=== PATIENT | female | born 1995 | race Asian ===

== ENCOUNTER 2016-04-23 13:56 | Emergency (ER) | payer OTHER ==
[~2016-04-23] VITALS: Ht 172.7 cm; Wt 57.3 kg
[2016-04-23 14:00] VITALS: TEMP 36.5; Ht 172.7 cm; Wt 57.3 kg
[2016-04-23 15:05] LABS: URINE APPEARANCE CLEAR (CLEAR); URINE BILIRUBIN NEG (NEG); URINE COLOR YELLOW; URINE EPITHELIAL CELL AUTO >30 /lpf (0-5); URINE NITRITE NEG (NEG); URINE PH 5.5 (4.5-7.5); URINE SPECIFIC GRAVITY 1.023 (1.000-1.030); UROBILINOGEN NEG (NEG)
[2016-04-23 15:17] LABS: MANUAL MICROSCOPIC REQUIRED? NO; REVIEW REQ? YES; ZZUR CULT IF INDIC CLEAN CATCH YES
[2016-04-23 15:23] LABS: BASO % 0.3 %; BASO ABS # 0.03 K/uL (0-0.2); COMPLETE YES; EOS % 1.5 %; HEMATOCRIT 44.6 % (37-47); IG% 0.1 %; LYMPH % 39.7 %; LYMPH ABS # 3.66 K/uL (1.2-3.4); MEAN CELL VOLUME 91.6 fL (80-100); MEAN CORPUSCULAR HEMOGLOBIN 31.8 pg (25-34); MEAN CORPUSCULAR HGB CONC 34.8 g/dl (32-36); MEAN PLATELET VOLUME 9.7 fL (7.4-10.4); MONO % 9.2 %; NEUT % 49.2 %; PLATELET COUNT 261 K/uL (130-400); RED BLOOD COUNT 4.87 M/uL (4.2-5.4); WHITE BLOOD COUNT 9.23 K/uL (4.8-10.8)
[2016-04-23 15:48] LABS: ALT/SGPT 19 U/L (12-78); AST/SGOT 13 U/L (15-37); BLOOD UREA NITROGEN 15 mg/dl (7-18); BUN/CREATININE RATIO 19.1 (10-20); CALCIUM 9.6 mg/dl (8.5-10.1); CARBON DIOXIDE 26 mmol/L (21-32); CHLORIDE 103 mmol/L (98-107); CREATININE 0.79 mg/dl (0.60-1.20); GLUCOSE 84 mg/dl (70-99); POTASSIUM 3.6 mmol/L (3.5-5.1); SODIUM 139 mmol/L (136-145)
[2016-04-23 15:50] LABS: ALKALINE PHOSPHATASE 62 U/L (45-117)
[2016-04-23] MEDS ORDERED: CEFTRIAXONE SOD 350MG/ML 1 GM VIAL IM STA (16:35)
[2016-04-23] MEDS ORDERED: DOXY100C PO (16:41)
[2016-04-23] MEDS ORDERED: DOXYCYCLINE HYCLATE 100 MG CAP PO ONE (16:45)
[2016-04-23 17:25] VITALS: BP 103/59; PULSE 84; O2SAT 98
--- NOTE | 2016-04-23 17:54 | EMERGENCY ROOM VISIT NOTE ---
History Report prepared by Devangibe: Darcy Nieves Under the Supervision of: Zunilda HannahO. First contact with patient: 14:25 Chief Complaint: VAGINAL DISCHARGE Stated Complaint: ITCHY VAGINAL AREA, ITCHY WHEN URINATING History of Present Illness The patient is a 20 year old female who presents to the Emergency Room with complaints of persistent vaginal itchiness for the past 1 month. She is accompanied by her boyfriend. She denies any dysuria or hematuria. She admits to some yellow vaginal discharge 1 month ago, but states it has resolved. Her last menstrual period ended on March 31, 2016 and was normal. Her last bowel movement was this morning and normal. She is sexually active with her boyfriend , who denies any similar symptoms. The patient denies any history of previous STD's or vaginal infections. The patient also denies any headache, change in vision, fevers, cough or cold symptoms, chest pain, shortness of breath, abdominal pain, nausea, vomiting, diarrhea and melena. Source of History: patient Onset: 1 month [employer]ING [employer] Position: other (vagina) Timing: other (persistent) Associated Symptoms: No SOB, No abdominal pain, No chest pain, No cough ( cough or cold symptoms), No diarrhea, No fevers, No headache, No melena, No nausea, No urinary symptoms, No vomiting Review of Systems See HPI for pertinent positives & negatives. A total of 10 systems reviewed and were otherwise negative. Past Medical & Surgical Medical Problems: (1) No significant past medical history Social History Smoking Status: Current Every Day Smoker Alcohol Use: occasionally Drug Use: none Marital Status: in relationship Housing Status: lives with roommate Occupation Status: [employer] student Current/Historical Medications Scheduled Doxycycline Hyclate (Vibramycin), 100 MG PO BID Allergies Coded Allergies: No Known Allergies (Unverified , 04/23/16) Physical Exam Vital Signs Date Time Temp Pulse Resp B/P Pulse Ox O2 Delivery O2 Flow Rate FiO2 04/23/16 17:25 84 18 103/59 98 04/23/16 16:37 86 18 107/65 99 Room Air 04/23/16 14:00 36.5 102 18 124/63 98 Room Air Physical Exam GENERAL: Patient is sitting on the edge of bed, alert, well appearing, well nourished, no distress, non-toxic EYE EXAM: normal conjunctiva OROPHARYNX: no exudate, no erythema, lips, buccal mucosa, and tongue normal and mucous membranes are moist NECK: supple, no nuchal rigidity, no adenopathy, non-tender LUNGS: Clear to auscultation. Normal chest wall mechanics HEART: no murmurs, S1 normal and S2 normal ABDOMEN: abdomen soft, non-tender, normo-active bowel sounds, no masses, no rebound or guarding. : Normal external genitalia, normal vaginal mucosa, os is closed, faint yellow discharge BACK: Back is symmetrical on inspection and there is no deformity, no midline tenderness, no CVA tenderness. SKIN: no rashes and no bruising UPPER EXTREMITIES: upper extremities are grossly normal. LOWER EXTREMITIES: No pitting edema. NEURO EXAM: Normal sensorium, cranial nerves II-XII grossly intact, normal speech, no gross weakness of arms, no gross weakness of legs. Gross sensation intact. Medical Decision & Procedures Laboratory Results 04/23/16 15:05 Red Blood Count 4.87, Mean Corpuscular Volume 91.6, Mean Corpuscular Hemoglobin 31.8, Mean Corpuscular Hemoglobin Concent 34.8, Mean Platelet Volume 9.7, Neutrophils (%) (Auto) 49.2, Lymphocytes (%) (Auto) 39.7, Monocytes (%) (Auto) 9.2, Eosinophils (%) (Auto) 1.5, Basophils (%) (Auto) 0.3, Neutrophils # (Auto) 4.54, Lymphocytes # (Auto) 3.66, Monocytes # (Auto) 0.85, Eosinophils # (Auto) 0.14, Basophils # (Auto) 0.03 04/23/16 15:05 Test 04/23/16 14:40 04/23/16 14:46 04/23/16 15:05 Urine Color YELLOW Urine Appearance CLEAR (CLEAR) Urine pH 5.5 (4.5-7.5) Urine Specific [place] 1.023 (1.000-1.030) Urine Protein NEG (NEG) Urine Glucose (UA) NEG (NEG) Urine Ketones TRACE (NEG) Urine Occult Blood 3+ (NEG) Urine Nitrite NEG (NEG) Urine Bilirubin NEG (NEG) Urine Urobilinogen NEG (NEG) Urine Leukocyte Esterase TRACE (NEG) Urine WBC (Auto) 5-10 /hpf (0-5) Urine RBC (Auto) 10-30 /hpf (0-4) Urine Hyaline Casts (Auto) 1-5 /lpf (0-5) Urine Epithelial Cells (Auto) >30 /lpf (0-5) Urine Bacteria (Auto) 1+ (NEG) Urine Test NEG (NEG) White Blood Count 9.23 K/uL (4.8-10.8) Red Blood Count 4.87 M/uL (4.2-5.4) Hemoglobin 15.5 g/dL (12.0-16.0) Hematocrit 44.6 % (37-47) Mean Corpuscular Volume 91.6 fL (80-100) Mean Corpuscular Hemoglobin 31.8 pg (25-34) Mean Corpuscular Hemoglobin Concent 34.8 g/dl (32-36) Platelet Count 261 K/uL (130-400) Mean Platelet Volume 9.7 fL (7.4-10.4) Neutrophils (%) (Auto) 49.2 % Lymphocytes (%) (Auto) 39.7 % Monocytes (%) (Auto) 9.2 % Eosinophils (%) (Auto) 1.5 % Basophils (%) (Auto) 0.3 % Neutrophils # (Auto) 4.54 K/uL (1.4-6.5) Lymphocytes # (Auto) 3.66 K/uL (1.2-3.4) Monocytes # (Auto) 0.85 K/uL (0.11-0.59) Eosinophils # (Auto) 0.14 K/uL (0-0.5) Basophils # (Auto) 0.03 K/uL (0-0.2) RDW Standard Deviation 41.1 fL (36.4-46.3) RDW Coefficient of Variation 12.2 % (11.5-14.5) Immature Granulocyte % (Auto) 0.1 % Immature Granulocyte # (Auto) 0.01 K/uL (0.00-0.02) Anion Gap 10.0 mmol/L (3-11) Est Creatinine Clear Calc Drug Dose 103.6 ml/min Estimated GFR () 125.8 Estimated GFR (Non- 108.5 BUN/Creatinine Ratio 19.1 (10-20) Calcium Level 9.6 mg/dl (8.5-10.1) Total Bilirubin 0.3 mg/dl (0.2-1) Direct Bilirubin < 0.1 mg/dl (0-0.2) Aspartate Amino Transf (AST/SGOT) 13 U/L (15-37) Alanine Aminotransferase (ALT/SGPT) 19 U/L (12-78) Alkaline Phosphatase 62 U/L (45-117) Total Protein 8.3 gm/dl (6.4-8.2) Albumin 4.5 gm/dl (3.4-5.0) Lipase 142 U/L (73-393) Date/Time Source Procedure Growth Status 04/23/16 14:46 Vaginal Swab Trichomonas Preparation - Final Complete Laboratory results per my review. Medications Administered Medications (Trade) Dose Ordered Sig/Emmett Route Start Time Stop Time Status Last Admin Dose Admin Ceftriaxone Sodium (Rocephin Im) 250 mg NOW STAT IM 04/23/16 16:35 04/23/16 16:37 DC 04/23/16 17:20 250 MG Doxycycline Hyclate (Vibramycin Cap) 100 mg ONE ONCE PO 04/23/16 16:45 04/23/16 16:46 DC 04/23/16 17:19 100 MG ED Course ED COURSE: Vital signs were reviewed and showed normal vital signs. The patients medical record was reviewed The above diagnostic studies were performed and reviewed. ED treatments and interventions as stated above. 1459: The patient was evaluated in room A2. A complete history and physical examination was performed. 1635: Rocephin 250 mg IM. 1645: Vibramycin Cap 100 mg PO. 1655: Upon reevaluation, the patient is feeling well. I discussed my findings with the patient and she understands and agrees with the treatment plan. Based on the patients age, coexisting illnesses, exam and lab findings the decision to treat as an outpatient was made. The patient remained stable while under my care. The patient appeared well at the time of discharge. Medical Decision Differential diagnoses includes but is not limited to appendicitis, diverticulitis, small bowel obstruction, malignancy, hernia, urinary tract infection, torsion, and ectopic , perforation, trauma, infectious. Patient is a 20-year-old female who presents the ER for vaginal discharge was has been present for the past month. She notes that it's a thick yellow which has been thinning out. She also has been having itching. She essentially active with her boyfriend. Last menstrual period was over week ago. Patient denies any fevers or abdominal pain. No dysuria, urgency or frequency. Abdominal exam is completely benign. Labs including CBC, BMP, LFTs, lipase are unremarkable. UA was contaminated with multiple epithelial cells. Without symptoms elected not to treat. Pelvic exam did show faint yellow discharge and consequently with her complaints elected to treat her with Rocephin and doxycycline. Patient was updated at bedside. STD testing is pending. Discussed with Pt concerning signs and symptoms to watch out for. Pt was instructed to follow up with their PCP and discussed with the patient their option to return to the ED at anytime for persistent or worsening symptoms. The appropriate anticipatory guidance and out-patient management, including indications for return to the emergency department, were explained at length to the patient and understood. Impression Primary Impression: Vaginal discharge Scribe Attestation The scribe's documentation has been prepared under my direction and personally reviewed by me in its entirety. I confirm that the note above accurately reflects all work, treatment, procedures, and medical decision making performed by me. Departure Information Dispostion Home / Self-Care Prescriptions Doxycycline Hyclate (VIBRAMYCIN) 100 Mg Cap 100 MG PO BID for 10 Days, CAP Prov: Scar Boone, DO 04/23/16 Referrals No Doctor, Assigned (PCP) Patient Instructions [facility], Trichomonas Vaginalis Discharge Additional Instructions Please follow up with your primary care doctor or if you are a student [facility] services with in the next 24 hours. Any worsening of your symptoms, please return to the ED immediately. This includes worsening of the discharge, abdominal pain, persistent nausea vomiting, fevers greater than 100.4 , or any other concerning signs or symptoms from your standpoint. Please take antibiotics as prescribed.
[2016-04-27 01:34] LABS: CHLAMYDIA TRACH RNA*** DETECTED (NOT DETECTED); GC (NEIS GONORRHOEAE)RNA** NOT DETECTED (NOT DETECTED)
--- NOTE | 2016-04-27 15:47 | Pharmacy Progress Note ---
ED Pharmacist Culture FollowUp Date of Service: Apr 27, 2016. Patient was sent home with a prescription for doxycycline, which should cover the C. trachomatis identified in serology.
== END 2016-04-23 17:26 | disposition home or self-care (01) ==
LOC: C.EDB 13:59 → C.EDA 17:26
DX: N89.8 Other specified noninflammatory disorders of vagina (principal); F17.200 Nicotine dependence, unspecified, uncomplicated